=== PATIENT | male | born 2005 | race Caucasian/White ===

== ENCOUNTER 2025-05-31 14:48 | Emergency (ER) | payer OTHER, MEDICAID ==
[~2025-05-31] VITALS: Ht 170.2 cm; Wt 69.0 kg
[2025-05-31 14:51] VITALS: TEMP 36.5; O2SAT 99
[2025-05-31] MEDS: IBUPROFEN 600MG TABLET PO ONE (16:21)
[2025-05-31] MEDS ORDERED: IBUP-1455 MT (18:29)
[2025-05-31 18:45] VITALS: BP 116/60; PULSE 62; RESP 18; O2SAT 100
== END 2025-05-31 18:48 | disposition home or self-care (01) ==
LOC: ER 14:48
DX: M79.605 Pain in left leg (principal); V03.10XA Pedestrian on foot injured in collision with car, pick-up truck or van in traffic accident, initial encounter; Y93.89 Activity, other specified; Y92.89 Other specified places as the place of occurrence of the external cause; Y99.8 Other external cause status
CPT/HCPCS: 73552; 73560; 73590; 99284